=== PATIENT | female | born 1960 | race Caucasian/White ===

== ENCOUNTER 2019-05-18 09:29 | Emergency (ER) | payer BC ==
[~2019-05-18] VITALS: Ht 162.6 cm; Wt 61.0 kg
[2019-05-18 09:35] VITALS: BP 146/66
[2019-05-18] MEDS ORDERED: NAPROXEN 500 MG TABLET PO ONE (10:00)
--- NOTE | 2019-05-18 10:16 | RAD ---
HAND RIGHT 3V History: Hand pain and injury.. No evidence of acute fracture. No aggressive bone destruction. Joint spaces and alignment are intact. Soft tissues appear unremarkable. IMPRESSION: No evidence of acute fracture or dislocation. Electronically signed by: Paul Chatman MD (05/18/2019 10:13 AM) [facility]
[2019-05-18] MEDS ORDERED: DICL50TA4 PO (10:31)
--- NOTE | 2019-05-18 10:31 | PHYS DOC ---
Past History Past Medical History: Cancer, Fibromyalgia Additional Past Medical Histor: BREAST CANCER Alcohol Use: None Adult General Chief Complaint Chief Complaint: HAND PROBLEM HPI HPI Patient is a 59-year-old female who presents with complaint of right hand pain and injury after hitting her hand while trying to place hardwood mk. Patient states that she is concerned that she could have broken it. She denies any other injuries. Patient states that pain is worsened with flexion of the fingers. She rates pain as moderate.[] Review of Systems Review of Systems Constitutional: Denies fever or chills [] Respiratory: Denies cough or shortness of breath [] Cardiovascular: No additional information not addressed in HPI [] Musculoskeletal: Positive right hand pain [] Integument: Denies rash or skin lesions [] Neurologic: Denies headache, focal weakness or sensory changes [] Current Medications Current Medications Current Medications Medications (Trade) Dose Ordered Sig/Maki Start Time Stop Time Status Last Admin Dose Admin Naproxen (Naprosyn) 500 mg 1X ONCE 05/18/19 10:00 05/18/19 10:01 DC 05/18/19 10:05 500 MG Allergies Allergies Allergies Coded Allergies Type Severity Reaction Last Updated Verified No Known Drug Allergies 05/18/19 No Physical Exam Physical Exam Constitutional: Well developed, well nourished, no acute distress, non-toxic appearance. [] Cardiovascular:Heart rate regular rhythm, no murmur [] Lungs & Thorax: Bilateral breath sounds clear to auscultation [] Skin: Warm, dry, no erythema, no rash. [] Extremities: Examination of right hand demonstrates tenderness to palpation over the second, third and fourth MCPs with soft tissue swelling and small abrasions over the second and fourth MCP joints. [] Neurologic: Alert and oriented X 3, no focal deficits noted. [] Current Patient Data Vital Signs Vital Signs Date Time Temp Pulse Resp B/P (MAP) Pulse Ox O2 Delivery O2 Flow Rate FiO2 05/18/19 09:35 98.0 47 16 146/66 (92) 99 Room Air EKG EKG [] Radiology/Procedures Radiology/Procedures [] Impressions: PROCEDURE: HAND RIGHT 3V HAND RIGHT 3V History: Hand pain and injury.. No evidence of acute fracture. No aggressive bone destruction. Joint spaces and alignment are intact. Soft tissues appear unremarkable. IMPRESSION: No evidence of acute fracture or dislocation. Electronically signed by: Paul Chatman MD (05/18/2019 10:13 AM) [facility] Course & Med Decision Making Course & Med Decision Making Pertinent Labs and Imaging studies reviewed. (See chart for details) [] Dragon Disclaimer Dragon Disclaimer This electronic medical record was generated, in whole or in part, using a voice recognition dictation system. Departure Departure: Impression: Primary Impression: Contusion of right hand Disposition: HOME, SELF-CARE Condition: STABLE Referrals: ANDRES MARTEL MD (PCP) Patient Instructions: Contusion Scripts Diclofenac Sodium (DICLOFENAC SODIUM) 50 Mg Tablet. 1 TAB PO BID PRN for PAIN, #20 TAB Prov: ALLEY AMEZQUITA Jr. DO 05/18/19 Problem Qualifiers Primary Impression: Contusion of right hand Encounter type: initial encounter Qualified Codes: S60.221A - Contusion of right hand, initial encounter ALLEY AMEZQUITA Jr. DO May 18, 2019 10:31
== END 2019-05-18 10:55 | disposition home or self-care (01) ==
LOC: ER 09:29
DX: S60.221A Contusion of right hand, initial encounter (principal); M79.7 Fibromyalgia; W22.8XXA Striking against or struck by other objects, initial encounter; Y93.89 Activity, other specified; Y92.89 Other specified places as the place of occurrence of the external cause; Y99.8 Other external cause status
CPT/HCPCS: 73130; 99283

== ENCOUNTER 2020-01-07 11:45 | Emergency (ER) | payer BC ==
[~2020-01-07] VITALS: Ht 162.6 cm; Wt 64.1 kg
[~2020-01-07 11:45] MED LIST: DICL50TA4 PO
--- NOTE | 2020-01-07 12:09 | PHYS DOC ---
Past History Past Medical History: Cancer, Fibromyalgia Additional Past Medical Histor: BREAST CANCER Alcohol Use: None General Adult EDM: Chief Complaint: CHEST PAIN HPI: HPI: 59 yo F PMH fibromyalgia and breast cancer (double mastectomy 2017, s/p chemo 05/2018, on anatrazole) presents to the ed with c/o epigastric lower sternal chest pain described as sharp that radiated up her chest to her jaw with associated nausea that lasted for approximately 30 minutes. Took 2 baby aspirin prior to ED arrival. Patient reports she has never had these symptoms before. Her father has a history of CAD and a AAA repair. Exposure to someone with URI sxs, thought to be allergies, pt had runny nose 2 days ago. Patient denies any alcohol, drug use including cocaine or methamphetamines. No family history of sudden cardiac , aortic dissection or connective tissue disorder. States she was significantly dizzy all day yesterday that she was afraid to move her head-any change in position and worsen her dizziness. States she woke up today feeling fatigued but dizziness had resolved. Does not smoke tobacco. Denies any trauma. On no AC. No h/o DVT/PE. Review of Systems: Review of Systems: Constitutional: Denies fever or chills Eyes: Denies change in visual acuity HENT: Denies nasal congestion or sore throat Respiratory: Denies cough or shortness of breath or hemoptysis Cardiovascular: Denies syncope or edema GI: Denies abdominal pain, nausea, vomiting, bloody stools or diarrhea : Denies dysuria Musculoskeletal: Denies back pain or joint pain or lower extremity edema Integument: Denies rash Neurologic: Denies headache, focal weakness or sensory changes Endocrine: Denies polyuria or polydipsia Lymphatic: Denies swollen glands Psychiatric: Denies depression or anxiety Heart Score: HEART Score for Chest Pain: HEART Score for Chest Pain Response (Comments) Value History Slighlty/Non-Suspicious 0 ECG Normal 0 Age >45 - < 65 1 Risk Factors 1 or 2 Risk Factors 1 Troponin < Normal Limit 0 Total 2 Risk Factors: Risk Factors: DM, Current or recent (<one month) smoker, HTN, HLP, family history of CAD, obesity. Risk Scores: Score 0 - 3: 2.5% MACE over next 6 weeks - Discharge Home Score 4 - 6: 20.3% MACE over next 6 weeks - Admit for Clinical Observation Score 7 - 10: 72.7% MACE over next 6 weeks - Early Invasive Strategies Allergies: Allergies: Allergies Coded Allergies Type Severity Reaction Last Updated Verified No Known Drug Allergies 05/18/19 No Physical Exam: PE: Constitutional: Well developed, well nourished, no acute distress, non-toxic appearance. [] HENT: Normocephalic, atraumatic, bilateral external ears normal, oropharynx moist, no oral exudates, nose normal. [] Eyes: EOMI, conjunctiva normal, no discharge. [] Neck: Normal range of motion, no tenderness, supple, no stridor. [] Cardiovascular:Heart rate regular rhythm, no murmur [] Lungs & Thorax: Bilateral breath sounds clear to auscultation [] Abdomen: Bowel sounds normal, soft, no tenderness, no masses, no pulsatile masses. [] Skin: Warm, dry, no erythema, no rash. [] Back: No tenderness, no CVA tenderness. [] Extremities: No tenderness, no cyanosis, no clubbing, ROM intact, no edema. [] Neurologic: Alert and oriented X 3, normal motor function, normal sensory func tion, no focal deficits noted. [] Psychologic: Affect normal, judgement normal, mood normal. [] EKG: EKG: sinus bradycardia at 54 bpm, NAD, low limb voltage, no T wave inversions, no ST elevations or ST depressions Sinus rhythm at 58 bpm, no axis deviation, PACs present, normal intervals, no T wave inversions, no ST elevations or ST depressions Radiology/Procedures: Radiology/Procedures: IMAGING REPORT Signed [facility]: [facility] [place]: [id number] : 1960 LOCATION: ER AGE: 59 SEX: F EXAM STATUS: REG ER ORD. PHYSICIAN: LEAH DYSON DO REASON: CHEST PAIN PROCEDURE: PORTABLE CHEST 1V EXAM: PORTABLE CHEST 1V INDICATION: Reason: CHEST PAIN / Spl. Instructions: / History: . TECHNIQUE: Single view COMPARISON: None FINDINGS: Surgical clips over the bilateral chest wall is present with evidence of breast augmentation. The heart size is normal. The great vessels appear unremarkable. There is no hilar or mediastinal mass. The lungs are clear. There is no pleural effusion or pneumothorax. There are no significant osseous abnormalities. IMPRESSION: No active cardiopulmonary disease. Electronically signed by: Zuleyma Cartwright MD (01/07/2020 12:05 PM) [id number] DICTATED AND SIGNED BY: ZULEYMA CARTWRIGHT MD DATE: 01/07/20 1205 CC: ANDRES MARTEL MD; LEAH DYSON DO ~ IMAGING REPORT Signed PATIENT: JOSUE BALDERASOUNT: [id number] : 1960 LOCATION: ER AGE: 59 SEX: F EXAM STATUS: REG ER ORD. PHYSICIAN: LEAH DYSON DO REASON: chest pain, dizzy, r/o pe PROCEDURE: CT ANGIOGRAPHY CHEST Study: CT CHEST WITH CONTRAST - PULMONARY ANGIOGRAM History: Chest pain. Dizziness. Pulmonary embolism. Comparison: None. Technique: Helical CT of the chest performed after the administration of 100 cc Omnipaque 350 intravenous contrast and timed for angiographic evaluation of the pulmonary arteries per PE protocol. Coronal and sagittal 3D MIP reformations were obtained. One or more of the following individualized dose reduction techniques were utilized for this examination: 1. Automated exposure control 2. Adjustment of the mA and/or kV according to patient size 3. Use of iterative reconstruction technique. Findings: Pulmonary Arteries: No main, lobar or segmental pulmonary embolism. Heart/Systemic Vasculature: Very mild scattered calcific atherosclerosis. Ectatic ascending aorta which is difficult to closely measure due to motion but is approximately up to 4 cm transverse when measured on the reformatted images. Mediastinum: No pericardial effusion, pneumomediastinum or pathologically enlarged lymph nodes. Lungs: Minimal basilar volume loss. Otherwise unremarkable. Neck/Axilla/Body Wall: Bilateral breast implants are intact. No pathologically enlarged axillary lymph nodes. The visualized thyroid is unremarkable. Upper Abdomen: No acute abnormality. Bones: No acute or aggressive osseous process. Miscellaneous: None. IMPRESSION: 1. No pulmonary embolism or other acute abnormality is seen to account for the patient's symptoms. 2. Ectatic ascending aorta which is measured at approximately 4 cm in transverse dimension. Note is made that accurate measurements are made difficult by pulsation. Electronically signed by: DAVID BETANCOURT MD (01/07/2020 2:22 PM) [id number] Course & Med Decision Making: Course & Med Decision Making Pertinent Labs and Imaging studies reviewed. (See chart for details) Concern for atypical chest pain that lasted for approximate 25 to 30 minutes. Chest pain has been resolved for the majority of patient's ED stay-pt with no back pain, neuro deficits or dizziness.. 2 troponins are negative. Low risk for MACE. EKGs with sinus bradycardia with frequent PACs. CT of the chest with no pulmonary embolus but does show 4 cm thoracic ectatic aneurysm. Labs including troponin, within normal limits. Chest x-ray with no acute process. Pt made aware of ectatic 4cm thoracic aneurysm-pt given strict ED return precautions for chest pain, back pain, neurologic deficits -understands need to be reevaluated by primary care physician. Encouraged urgent outpatient follow-up with PMD and cardiology. Life-threatening processes were considered but are low suspicion at this time, given history and physical exam. Pt was educated on all prescription medications and adverse effects. All patient's questions were answered and pt was stable at time of discharge. Life/limb-threatening differential includes but is not limited to, acute myocardial infarction, aortic dissection, congestive heart failure, esophageal injury including rupture, surgical abdomen, arrhythmia, cardiomyopathy, myocarditis, pericarditis, peptic ulcer disease, pneumomediastinum, pneumonia, pneumothorax, pulmonary embolus, unstable angina, rib fracture, contusion, pericardial tamponade or effusion, pulmonary contusion I spoken with the patient and her caregivers. I explained the patient's condition, diagnoses and treatment plan based on the information available to me at this time. I have answered the patient and her caregiver's questions and addressed any concerns. The patient and her caregivers have a good understanding of patient's diagnosis, condition and treatment plan as can be expected at this point. Vital signs have been stable. Patient's condition is stable and appropriate for discharge from the emergency department. Patient will pursue further outpatient evaluation with primary care physician or other designated or consulting physician as outlined in the discharge instructions. The patient and/or caregivers are agreeable to this plan of care and follow-up instructions have been explained in detail. The patient and/or caregivers have received these instructions in written form and have expressed an understanding of the discharge instructions. The patient and/or caregivers are aware that any significant change of condition or worsening of symptoms should prompt immediate return to this or the closest emergency department or call to [email or web address] Disclaimer: Raine Disclaimer: This electronic medical record was generated, in whole or in part, using a voice recognition dictation system. Departure Departure: Impression: Primary Impression: Chest pain Additional Impressions: PAC (premature atrial contraction) Ectatic thoracic aorta Disposition: 01 DC HOME SELF CARE/HOMELESS Condition: STABLE Referrals: ANDRES MARTEL MD (PCP) in 3-5 days for re-eval Patient Instructions: Chest Pain (Nonspecific), Thoracic Aortic Aneurysm Additional Instructions: FOLLOW UP WITH CARDIOLOGY: [facility] [address] [facility] [address] [place] [address] [place] [facility] [address] [address] EMERGENCY DEPARTMENT GENERAL DISCHARGE INSTRUCTIONS Thank you for coming to [facility] (ED) today and trusting us with you care. We trust that you had a positivie experience in our Emergency Department. If you wish to speak to the department management, you may call the director at [phone]. YOUR FOLLOW UP INSTRUCTIONS ARE FOLLOWS: 1. Do you have a private Doctor? If you do not have a private doctor, please ask for a resource list of physicians or clinics that may be able to assist you with follow up care. 2. The Emergency Physician has interpreted your x-rays. The X-Ray specialist will also review them. If there is a change in the findings, you will be notified in 48 hours when at all possible. 3. A lab test or culture has been done, your results will be reviewed and you will be notified if you need a change in treatment. ADDITIONAL INSTRUCTIONS AND INFORMATION: 1. Your care today has been supervised by a physician who is specially trained in emergency care. Many problems require more than one evaluation for a complete diagnosis and treatment. We recommend that you schedule your follow up appointment as recommended to ensure complete treatment of you illness or injury. If you are unable to obtain follow up care and continue to have a problem, or if your condition worsens, we recommend that you return to the ED. 2. We are not able to safely determine your condition over the phone nor are we able to give sound medical advice over the phone. For these safety reasons, if you call for medical advice we will ask you to come to the ED for further evaluation. 3. If you have any questions regarding these discharge instructions please call the ED at [phone]. SAFETY INFORMATION: In the interest of safety, wellness, and injury prevention; we encourage you to wear your sealbelt, if you smoke; quite smoking, and we encourage family to use a protective helmet for bicycling and other sporting events that present an increased risk for head injury. IF YOUR SYMPTOMS WORSEN OR NEW SYMPTOMS DEVELOP, OR YOU HAVE CONCERNS ABOUT YOUR CONDITION; OR IF YOUR CONDITION WORSENS WHILE YOU ARE WAITING FOR YOUR FOLLOW UP APPOINTMENT; EITHER CONTACT YOUR PRIMARY CARE DOCTOR, THE PHYSICIAN WHOSE NAME AND NUMBER YOU WERE GIVEN, OR RETURN TO THE ED IMMEDIATELY. [facility] DO Jan 07, 2020 12:09
[2020-01-07 12:23] LABS: BASO % 1 % (0-3); EOS # 0.1 x10^3/uL (0.0-0.7); EOS % 2 % (0-3); HEMATOCRIT 44.9 % (36.0-47.0); LYMPH # 1.7 x10^3/uL (1.0-4.8); LYMPH % 30 % (24-48); MEAN CORPUSCULAR HEMOGLOBIN 31 pg (25-35); MEAN CORPUSCULAR HGB CONC 34 g/dL (31-37); MEAN CORPUSCULAR VOLUME 92 fL (79-100); MONO # 0.7 x10^3/uL (0.0-1.1); MONO % 12 % (0-9); NEUT # 3.1 x10^3uL (1.8-7.7); NEUT % 55 % (31-73); PLATELET COUNT 213 x10^3/uL (140-400); RED CELL DISTRIBUTION WIDTH 13.7 % (11.5-14.5); WHITE BLOOD COUNT 5.6 x10^3/uL (4.0-11.0)
[2020-01-07 12:38] LABS: CALCIUM 9.2 mg/dL (8.5-10.1); GFR 56.9; POTASSIUM 4.1 mmol/L (3.5-5.1)
[2020-01-07 12:50] LABS: ALBUMIN/GLOBULIN RATIO 1.1 (1.0-1.7); TOTAL BILIRUBIN 0.7 mg/dL (0.2-1.0); TOTAL PROTEIN 7.6 g/dL (6.4-8.2)
[2020-01-07] MEDS ORDERED: CONTRAST GIVEN. MC PRN (13:45)
[2020-01-07] MEDS ORDERED: IOHEXOL 350 MG/ML 100 ML VIAL. IV ONE (13:45)
--- NOTE | 2020-01-07 14:25 | RAD ---
Study: CT CHEST WITH CONTRAST - PULMONARY ANGIOGRAM History: Chest pain. Dizziness. Pulmonary embolism. Comparison: None. Technique: Helical CT of the chest performed after the administration of 100 cc Omnipaque 350 intravenous contrast and timed for angiographic evaluation of the pulmonary arteries per PE protocol. Coronal and sagittal 3D MIP reformations were obtained. One or more of the following individualized dose reduction techniques were utilized for this examination: 1. Automated exposure control 2. Adjustment of the mA and/or kV according to patient size 3. Use of iterative reconstruction technique. Findings: Pulmonary Arteries: No main, lobar or segmental pulmonary embolism. Heart/Systemic Vasculature: Very mild scattered calcific atherosclerosis. Ectatic ascending aorta which is difficult to closely measure due to motion but is approximately up to 4 cm transverse when measured on the reformatted images. Mediastinum: No pericardial effusion, pneumomediastinum or pathologically enlarged lymph nodes. Lungs: Minimal basilar volume loss. Otherwise unremarkable. Neck/Axilla/Body Wall: Bilateral breast implants are intact. No pathologically enlarged axillary lymph nodes. The visualized thyroid is unremarkable. Upper Abdomen: No acute abnormality. Bones: No acute or aggressive osseous process. Miscellaneous: None. IMPRESSION: 1. No pulmonary embolism or other acute abnormality is seen to account for the patient's symptoms. 2. Ectatic ascending aorta which is measured at approximately 4 cm in transverse dimension. Note is made that accurate measurements are made difficult by pulsation. Electronically signed by: DAVID BETANCOURT MD (01/07/2020 2:22 PM) [id number]
--- NOTE | 2020-01-07 15:15 | EKG ---
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
--- NOTE | 2020-01-07 15:18 | EKG ---
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
[2020-01-07 16:34] VITALS: BP 108/70
== END 2020-01-07 16:37 | disposition home or self-care (01) ==
LOC: ER 11:45
DX: I49.1 Atrial premature depolarization (principal); I77.810 Thoracic aortic ectasia; R07.2 Precordial pain; M79.7 Fibromyalgia; R42 Dizziness and giddiness
CPT/HCPCS: 36415; 71045; 71275; 80053; 82550; 83880; 84484; 85025; 93005; 99285; Q9967